=== PATIENT | male | born 1975 | race Caucasian/White ===

== ENCOUNTER 2025-07-06 10:47 | Day surgery (SDC) | payer OTHER ==
[2025-07-05 14:21] VITALS: BMI 38.0
[2025-07-06] MEDS ORDERED: AFRIN NASAL MIST 15 ML BOT ONE (11:19)
[2025-07-06] MEDS ORDERED: Oxymetazoline HCl 0.05% (15 ML) ONE (11:35)
[2025-07-06] MEDS ORDERED: PROPOFOL 0 ML ONE (11:56)
[2025-07-06] MEDS ORDERED: Lidocaine 1% PF 5 ML VIAL ONE (11:59)
[2025-07-06] MEDS ORDERED: Ciprofloxacin 0.2% Otic (0.25ML CONTAINER) ONE (12:19)
[2025-07-06] MEDS ORDERED: Ferric Subsulfate 8 ML TOPICAL SOLN ONE (12:20)
[2025-07-06] MEDS ORDERED: Bacitracin 1 PK ONE (12:20)
[2025-07-06] MEDS ORDERED: Lidocaine 1% w/Epinephrine 1:200K 30 ML VIAL ONE (12:20)
[2025-07-06] MEDS ORDERED: PROPOFOL 40 ML ONE (13:07)
[2025-07-06] MEDS ORDERED: SUCCINYLCHOLINE/SOD CL,ISO/PF 200 MG/10 ML SYRINGE FS ONE (13:07)
[2025-07-06] MEDS ORDERED: SUGAMMADEX SODIUM 200 MG/2 ML VIAL ONE (13:37)
[2025-07-06] MEDS ORDERED: PHENYLEPHRINE-NS 100 MCG/ML 10 ML SYRINGE ONE (14:04)
[2025-07-06] MEDS ORDERED: Hydrocodone-Acetamin 15 ML UDCUP ONE (15:33)
== END 2025-07-06 16:20 | disposition home or self-care (01) ==
LOC: CSHSDC 10:47
PROVIDERS: ATTEND Specialist
DX: H69.91 Unspecified Eustachian tube disorder, right ear (principal); J34.2 Deviated nasal septum; J32.9 Chronic sinusitis, unspecified; J35.3 Hypertrophy of tonsils with hypertrophy of adenoids; J34.3 Hypertrophy of nasal turbinates; H90.3 Sensorineural hearing loss, bilateral; G47.33 Obstructive sleep apnea (adult) (pediatric); K13.79 Other lesions of oral mucosa; I10 Essential (primary) hypertension; E78.5 Hyperlipidemia, unspecified; Z79.82 Long term (current) use of aspirin; Z79.899 Other long term (current) drug therapy
CPT/HCPCS: 88304; J1100; J2704; J3010